=== PATIENT | female | born 1955 | race Caucasian/White ===

== ENCOUNTER 2018-08-24 10:43 | Day surgery (SDC) | payer OTHER ==
[2018-08-20 18:59] VITALS: BMI 35.2
[~2018-08-24] VITALS: Ht 152.4 cm; Wt 84.7 kg
[2018-08-24] VITALS (10 sets, daily range): BP systolic 107–188; BP diastolic 66–79; PULSE 55–68; RESP 12–18; Ht 152.4 cm; Wt 84.7 kg
[~2018-08-24 10:43] MED LIST: benazepril PO
[2018-08-24] MEDS ORDERED: ATOR20TA38 PO (11:14)
[2018-08-24] MEDS ORDERED: BENA40TA56 PO (11:14)
[2018-08-24] MEDS ORDERED: MELO7.5T38 PO (11:14)
[2018-08-24] MEDS ORDERED: HYDR25TA6 PO (11:15)
[2018-08-24] MEDS: SOD CHLORIDE 0.9% 1,000 ML IV SCH ×2 (11:29→11:45)
[2018-08-24] MEDS ORDERED: DESFLURANE 15 MIN ONE (13:00)
[2018-08-24] MEDS ORDERED: CEFAZOLIN 2 GM/50 ML (PMX) 50 ML IVPB ONE (13:00)
[2018-08-24] MEDS ORDERED: BUPIVACAINE 0.25% (MPF) 30 ML INJ ONE ×2 (13:05→14:23)
--- NOTE | 2018-08-24 13:23 | PREAC ---
Date/Time of Note Date/Time of Note DATE: 08/24/18 TIME: 13:06 Anesthesia Eval and Record Evaluation Time Pre-Procedure Interview DATE: 08/24/18 TIME: 13:06 Age 63 Sex female NPO: 8 hrs Preoperative diagnosis BILATERAL LEG MASSES Planned procedure EXCISION BILATERAL LEG MASSES Past Medical History Past Medical History: Includes Cardio: HTN, Dyslipidemia GI: GERD, Obesity Surgery & Anesthesia Issues No known issue Meds Anticoagulation: No Beta Aj within 24 hr: No Reason Beta Aj not given: Pt. not on B-Aj Reported Medications Hydrochlorothiazide* (Hydrochlorothiazide*) 25 Mg Tab, 25 MG PO DAILY, #30 TAB 08/24/18 Atorvastatin Calcium* (Atorvastatin Calcium*) 20 Mg Tablet, 20 MG PO QHS, #30 TAB 08/24/18 Meloxicam* (Meloxicam*) 7.5 Mg Tablet, 7.5 MG PO DAILY, #30 TAB 08/24/18 Benazepril Hcl* (Benazepril Hcl*) 40 Mg Tablet, 40 MG PO DAILY, #30 TAB 08/24/18 Discontinued Reported Medications [benazepril] No Conflict Check, PO DAILY 10/27/14 Current Medications Sodium Chloride 1,000 ml @ 75 mls/hr [id number] IV Last administered on 08/24/18at 11:45; Admin Dose 75 MLS/HR; Start 08/24/18 at 13:00; Stop 08/25/18 at 02:19 Cefazolin Sodium/ Dextrose 50 ml @ 100 mls/hr PRE-OP ONCE IVPB ; Start 08/24/18 at 13:00; Stop 08/24/18 at 13:29 Meds reviewed: Yes Allergies Coded Allergies: No Known Allergy (Unverified , 08/24/18) Allergies Reviewed: Yes Labs/Studies Labs Reviewed: Reviewed by anesthesiologist test: N/A Pre-procedure Exam Last vitals Vital Signs Date Temp Pulse Resp B/P (MAP) Pulse Ox O2 O2 Flow FiO2 Time Delivery Rate 08/24/18 97.8 62 16 145/73 100 Room Air 11:28 (97) Airway: Adequate mouth opening, Adequate thyromental dist Mallampati: Mallampati II Teeth: Normal Lung: Normal Heart: Normal ASA Physical Status ASA physical status: 2 Emergency: None Planned Anesthetic General/MAC: ETT Planned Pain Management Parenteral pain med Pre-operative Attestations Prior to commencing anesthesia and surgery, the patient was re-evaluated, there was verification of: *The patient's identity *The results of appropriate recent lab work and preoperative vital signs *The above evaluation not changing prior to induction *Anesthetic plan, risk benefits, alternative and complications discussed with patient/family; questions answered; patient/family understands, accepts and wishes to proceed. Tavares Agarwal M.D. Aug 24, 2018 13:22
[2018-08-24] MEDS ORDERED: PROPOFOL 20 ML ONE (13:24)
[2018-08-24] MEDS ORDERED: ROCURONIUM 50 MG INJ ONE (13:24)
[2018-08-24] MEDS ORDERED: NEOSTIGMINE 3 MG/3 ML SYRINGE ONE (13:24)
[2018-08-24] MEDS ORDERED: GLYCOPYRROLATE 0.4 MG INJ ONE (13:24)
[2018-08-24] MEDS ORDERED: FENTAnyl 50 MCG/ML VIAL ONE (13:24)
[2018-08-24] MEDS ORDERED: MIDAZOLAM 1 MG/ML 2 ML INJ ONE (13:24)
[2018-08-24] MEDS ORDERED: DEXAMETHASONE 4 MG/ML 5 ML INJ ONE (13:24)
[2018-08-24] MEDS ORDERED: ONDANSETRON 4 MG INJ ONE (13:24)
[2018-08-24] MEDS ORDERED: CEFAZOLIN 1 GM INJ ONE (13:24)
[2018-08-24] MEDS ORDERED: LABETALOL HCL 20MG INJ IV PRN (13:30)
[2018-08-24] MEDS ORDERED: EPHEDrine 25 MG/5 ML SYG IV PRN (13:30)
[2018-08-24] MEDS ORDERED: DIPHENHYDRAMINE 50 MG INJ IV PRN (13:30)
[2018-08-24] MEDS ORDERED: IPRATROPIUM (NEB) 0.5 MG/2.5 ML AMP HHN PRN (13:30)
[2018-08-24] MEDS ORDERED: hydrALAzine 20 MG INJ IV PRN (13:30)
[2018-08-24] MEDS ORDERED: FENTAnyl 50 MCG/ML VIAL IV PRN ×3 (13:30)
[2018-08-24] MEDS ORDERED: OXYCODONE/ACETAMINOPHEN (5/325) TAB PO PRN ×2 (13:30)
[2018-08-24] MEDS ORDERED: TRIMETHOBENZAMIDE 100 MG/ML VIAL IM PRN (13:30)
[2018-08-24] MEDS ORDERED: MIDAZOLAM 1 MG/ML 2 ML INJ IV PRN (13:30)
[2018-08-24] MEDS ORDERED: ONDANSETRON 4 MG INJ IV PRN (13:30)
[2018-08-24] MEDS ORDERED: HYDROmorphONE 1 MG/5 ML IV SYRINGE IV PRN ×2 (13:30)
[2018-08-24] MEDS ORDERED: MEPERIDINE 25 MG INJ IV PRN (13:30)
[2018-08-24] MEDS ORDERED: ALBUTEROL 0.083% (NEB) 2.5 MG/3 ML AMP HHN PRN (13:30)
--- NOTE | 2018-08-24 14:11 | OPR ---
Date/Time of Note Date/Time of Note DATE: 08/24/18 TIME: 14:07 Operative Report Procedure Date: Aug 24, 2018 Preoperative Diagnosis right leg mass and left leg mass x 2 Postoperative Diagnosis same Operation/Procedure Performed 1. excision of right leg mass 4 cm mass 2. localized adjacent tissue transfer with the use of skin flaps 8 sq cm defect of right leg 3. excision of left medial leg mass 8 cm mass 4. localized adjacent tissue transfer with the use of skin flaps 16 sq cm defect of left medial leg 5. excision of left lateral leg mass 6 cm mass 6. localized adjacent tissue transfer with the use of skin flaps 12 sq cm defect of left lateral leg 7. therapeutic injection of subcutaneous local anesthesia Surgeon see signature line [employer] Project Manager none Anesthesia Type: general Estimated Blood Loss: 10 - 50 ml's Transfusion none Specimen right leg mass left medial leg mass left lateral leg mass Grafts/Implants none Complications none Pt Condition Post Procedure: stable Indications This is a 63-year-old female with a right leg mass and 2 left leg masses. She states that they are both painful and request surgical excision. Risks alternatives benefits and personal were discussed the patient. Potential complications including but not limited to bleeding infection pain recurrence of the masses wound dehiscence were discussed the patient. Patient expresses understanding and consents to the operation. Procedure Description Patient is taken to the OR and prepped and draped in usual sterile fashion. Surgical timeout was performed. IV antibiotics given. Transverse incision was made over the right leg mass with a 15 blade. Dissection with cautery was carried onto the mass. The mass was circumferentially excised. Good hemostasis status. Due to tissue defect localization just transfer with use of skin flaps was performed. Closure was performed with skin terence. Therapeutic subcu taste local anesthesia was injected at the incision site. Attention was then paid to the left leg masses. The medial left leg mass is examined in a tra nsverse incision was made with a 15 blade. Dissection with cautery could onto the mass and the mass was circumferentially excised. Good hemostasis established in this region. Due to tissue defect localization to his transfer with his skin flaps was performed. Multilayer closed with interrupted 3-0 Vicryl and skin terence. Therapeutic contains local anesthesia was injected at the incision site. Attention was then paid to the left lateral leg mass. Transverse incision was made with a 15 blade. Dissection with cautery could onto the mass and the mass was circumferentially excised. Good hemostasis established. Due to tissue defect localization to his transfer with use of skin flaps was performed. Closure was performed skin terence. Therapeutic contains local anesthesia was injected at the incision site. Dry dressings was applied to all surgical sites. Malia KIDD Aug 24, 2018 14:11
--- NOTE | 2018-08-24 14:19 | PAC ---
Date/Time of Note Date/Time of Note DATE: 08/24/18 TIME: 14:19 Post-Anesthesia Notes Post-Anesthesia Note Last documented vital signs Vital Signs Date Temp Pulse Resp B/P (MAP) Pulse Ox O2 O2 Flow FiO2 Time Delivery Rate 08/24/18 97.8 62 16 145/73 100 Room Air 11:28 (97) Activity: WNL Respiratory function: WNL Cardiovascular function: WNL Mental status: Baseline Pain reasonably controlled: Yes Hydration appropriate: Yes Nausea/Vomiting absent: Yes Tavares Agarwal M.D. Aug 24, 2018 14:19
[2018-08-24] MEDS ORDERED: HYDROCODONE/APAP (5/325) TAB PO ONE (14:30)
[2018-08-24] MEDS: HYDROmorphONE 1 MG/5 ML IV SYRINGE IV PRN ×2 (14:43→14:50)
== END 2018-08-24 16:00 | disposition home or self-care (01) ==
LOC: SDS 10:43
PROVIDERS: ATTEND Surgery
DX: D17.24 Benign lipomatous neoplasm of skin and subcutaneous tissue of left leg (principal); I10 Essential (primary) hypertension
CPT/HCPCS: 14301; 88307; J0690; J1100; J1170; J2250; J2405; J2710; J3010; Z7512; Z7610

== ENCOUNTER 2018-09-19 14:30 | Emergency (ER) | payer OTHER ==
[~2018-09-19] VITALS: Ht 162.6 cm; Wt 83.3 kg
[~2018-09-19 14:30] MED LIST changes: +ATOR20TA38 PO; +BENA40TA56 PO; +HYDR25TA6 PO; +MELO7.5T38 PO; -benazepril PO
[2018-09-19 14:36] VITALS: Ht 162.6 cm; Wt 83.3 kg
[2018-09-19] MEDS ORDERED: LIDOCAINE 1%/EPI (MDV) 50 ML INJ INJ ONE (18:00)
[2018-09-19] MEDS ORDERED: LIDOCAINE 1%/EPI (MDV) 30 ML INJ INJ ONE (18:00)
[2018-09-19] MEDS ORDERED: CLIN300C10 PO (18:16)
--- NOTE | 2018-09-19 18:18 | ERD ---
ER Documentation Chief Complaint Chief Complaint Pt c/o L upper leg swelling and and pain , had lipoma emoved 2 weeks ago HPI 63-year-old female presenting with left medial thigh pain for the past 3 days with swelling and redness in the area. She had surgery done by Dr. Kidd on August 24 for lipoma removal on bilateral legs. She was doing well after surgery but did have what sounds to be a seroma at the site of the left medial thigh surgery. Her surgeon told her that this was normal. However it has become painful more recently in the past 3 days with new erythema. No fevers or chills. No numbness or tingling in the leg. No other associated symptoms. ROS All systems reviewed and are negative except as per history of present illness. Medications Home Meds Active Scripts Clindamycin Hcl* (Clindamycin Hcl*) 300 Mg Capsule, 300 MG PO TID for 7 Days, CAP Prov:RAMA NICHOLE MD 09/19/18 Reported Medications Hydrochlorothiazide* (Hydrochlorothiazide*) 25 Mg Tab, 25 MG PO DAILY, #30 TAB 08/24/18 Atorvastatin Calcium* (Atorvastatin Calcium*) 20 Mg Tablet, 20 MG PO QHS, #30 TAB 08/24/18 Meloxicam* (Meloxicam*) 7.5 Mg Tablet, 7.5 MG PO DAILY, #30 TAB 08/24/18 Benazepril Hcl* (Benazepril Hcl*) 40 Mg Tablet, 40 MG PO DAILY, #30 TAB 08/24/18 Allergies Allergies: Coded Allergies: Sulfa (Sulfonamide Antibiotics) (Verified Allergy, Unknown, 09/19/18) PMhx/Soc History of Surgery: Yes (NORA YOU[facility]) Anesthesia Reaction: No Hx Neurological Disorder: No Hx Respiratory Disorders: No Hx Cardiac Disorders: Yes (HTN) Hx Psychiatric Problems: No Hx Miscellaneous Medical Probl: Yes (KATIE. LEG MASS) Hx Alcohol Use: No Hx Substance Use: No Hx Tobacco Use: No Smoking Status: Never smoker FmHx Family History: No diabetes Physical Exam Vitals Vital Signs Date Temp Pulse Resp B/P (MAP) Pulse Ox O2 O2 Flow FiO2 Time Delivery Rate 09/19/18 100.0 86 18 154/89 99 14:36 (110) Physical Exam Const: No acute distress Resp: Clear to auscultation bilaterally Cardio: Regular rate and rhythm, no murmurs Abd: Soft, non tender Skin: Left medial thigh with well-healed surgical incisional scar. There is fluctuance in the area of the scar with surrounding erythema and induration. Area of fluctuance is about 5 cm x 2 cm. Back: No midline or flank tenderness Ext: No cyanosis, or edema. See skin exam Neur: Awake and alert Psych: Normal Mood and Affect Results 24 hrs Current Medications Medications Dose Sig/Rah Start Time Status Last (Trade) Ordered Route PRN Stop Time Admin Dose Reason Admin Lidocaine/ 20 ml ONCE ONCE 09/19/18 DC Epinephrine INJ 18:00 (Xylocaine 09/19/18 18:00 1%/ Epi (Mdv)) Lidocaine/ 20 ml ONCE ONCE 09/19/18 DC Epinephrine INJ 18:00 (Xylocaine 09/19/18 18:01 1%/ Epi (Mdv)) Procedures/MDM Abscess Incision and Drainage with irrigation by me: Location: Left medial thigh Anesthesia: Local 1% Lidocaine with epinephrine Technique: Irrigated. Disrupted loculations w/ instrumentation Packin/4 inch placed Complications: Neurovascularly intact post procedure 48 hour wound check. Scar minimization instructions given. ED Ultrasound: Abscess localized by me using concurrent ultrasound guidance and assessment of the anatomy. Patient's skin symptoms have stabilized while evaluated in the department and are appropriate for outpatient care and work up. It seems that she has an infected seroma with associated cellulitis. She will be prescribed clindamycin and told to follow-up with her surgeon on Friday for removal of packing and reexamination. She was told to follow-up in the ER if she is unable to follow- up with her surgeon. Patient understands discharge plan. Wound care discussed. Exam and w/u not consistent w/ sepsis, deep space infection, or foreign body. Patient stable for discharge Departure Diagnosis: Primary Impression: Infected seroma, postoperative Condition: Stable Patient Instructions: Abscess Drainage, Seroma, Postsurgical Referrals: Malia KIDD Additional Instructions: Mitchel igor cass con araujo cirugano lunes para un examen. Si no puedes ir al cirugano, regresa aqui. RAMA NICHOLE MD Sep 19, 2018 18:18
[2018-09-19 18:23] VITALS: BP 133/72; PULSE 78; RESP 16
== END 2018-09-19 18:20 | disposition home or self-care (01) ==
LOC: E/R 14:30
DX: L76.21 Postprocedural hemorrhage of skin and subcutaneous tissue following a dermatologic procedure (principal); I10 Essential (primary) hypertension
CPT/HCPCS: 10060; Z7502; Z7610